=== PATIENT | female | born 1950 | race Caucasian/White ===

== ENCOUNTER 2020-10-02 14:45 | Inpatient (IN) | payer MEDICARE, OTHER ==
[~2020-10-02] VITALS: Ht 162.6 cm; Wt 72.6 kg
[2020-10-02 16:23] LABS: HEMOGLOBIN 16.6 gm/dl (12.3-15.3); RED BLOOD COUNT 5.32 M/UL (4.00-5.10); WHITE BLOOD COUNT 23.8 K/UL (4.5-11.0)
[2020-10-02] MEDS ORDERED: LISINOPRIL-HCT1 EAC1 PO (20:54)
[2020-10-02] MEDS ORDERED: THERAGRAN M TAB1 EA PO (20:55)
[2020-10-02] MEDS ORDERED: [UNRECOGNIZED DRUG - OTHER] PO (20:56)
[2020-10-03 04:19] LABS: BORDETELLA PARAPERTUSSIS Not Detected (Not Detectd); BORDETELLA PERTUSSIS Not Detected (Not Detectd); CHLAMYDIA PNEUMONIAE Not Detected (Not Detectd); CORONAVIRUS HKU1 Not Detected (Not Detectd); CORONAVIRUS NL63 Not Detected (Not Detectd); CORONAVIRUS OC43 Not Detected (Not Detectd); CORONOAVIRUS 229E Not Detected (Not Detectd); HUMAN METAPNEUMOVIRUS Not Detected (Not Detectd); HUMAN RHINOVIRUS/ENTEROVIRUS Not Detected (Not Detectd); INFLUENZA A Not Detected (Not Detectd); INFLUENZA B Not Detected (Not Detectd); MYCOPLASMA PNEUMONIAE Not Detected (Not Detectd); PARAINFLUENZA VIRUS 1 Not Detected (Not Detectd); PARAINFLUENZA VIRUS 2 Not Detected (Not Detectd); PARAINFLUENZA VIRUS 3 Not Detected (Not Detectd); PARAINFLUENZA VIRUS 4 Not Detected (Not Detectd); RESPIRATORY SYNCYTIAL VIRUS Not Detected (Not Detectd)
[2020-10-03 05:05] LABS: WHITE BLOOD COUNT 24.2 K/UL (4.5-11.0)
[2020-10-03 05:07] LABS: HEMOGLOBIN 14.5 gm/dl (12.3-15.3); RED BLOOD COUNT 4.61 M/UL (4.00-5.10)
[2020-10-03 05:10] LABS: SARS-CoV-2 NOT DETECTED (Not Detectd)
--- NOTE | 2020-10-03 17:45 | NUR ---
18G X 10CM MIDLINE INSERTED IN THE LEFT BRACHIAL VEIN. ASPIRATES AND FLUSHES WELL. NO COMPLICATIONS.
[2020-10-04 05:11] LABS: HEMOGLOBIN 12.4 gm/dl (12.3-15.3); RED BLOOD COUNT 4.01 M/UL (4.00-5.10); WHITE BLOOD COUNT 13.3 K/UL (4.5-11.0)
[2020-10-04 05:48] LABS: BUN/CREATININE RATIO 28 (0-10)
[2020-10-05 04:32] LABS: HEMOGLOBIN 12.3 gm/dl (12.3-15.3); RED BLOOD COUNT 4.01 M/UL (4.00-5.10); WHITE BLOOD COUNT 13.2 K/UL (4.5-11.0)
[2020-10-05 04:51] LABS: BUN/CREATININE RATIO 28 (0-10)
[2020-10-06 05:20] LABS: HEMOGLOBIN 12.8 gm/dl (12.3-15.3); RED BLOOD COUNT 4.1 M/UL (4.00-5.10); WHITE BLOOD COUNT 10.7 K/UL (4.5-11.0)
[2020-10-06 05:41] LABS: BUN/CREATININE RATIO 27 (0-10)
[2020-10-06] MEDS ORDERED: LEVOFLOXACIN500 MG PO ×2 (16:38→18:02)
[2020-10-06] MEDS ORDERED: HYDROCODON-ACE1 EAC4 PO ×2 (16:38→18:02)
[2020-10-07 04:50] LABS: HEMOGLOBIN 12.7 gm/dl (12.3-15.3); RED BLOOD COUNT 4.13 M/UL (4.00-5.10); WHITE BLOOD COUNT 10.5 K/UL (4.5-11.0)
[2020-10-07 05:17] LABS: BUN/CREATININE RATIO 32 (0-10)
[2020-10-07] MEDS ORDERED: LOPRESSOR 25 MG25 MG PO (16:31)
[2020-10-07] MEDS ORDERED: PROTONIX 40 MG40 M1 PO (16:31)
[2020-10-07] MEDS ORDERED: ATORVASTATIN CA20 MG PO (16:31)
[2020-10-07] MEDS ORDERED: ALPRAZOLAM0.5 MG PO (16:31)
[2020-10-07] MEDS ORDERED: ASPIRIN EC81 MG PO (16:31)
== END 2020-10-07 17:32 | disposition home or self-care (01) | DRG 242 ==
LOC: CCU 14:45 → PROG CARE 14:45 → CCU 19:14
PROVIDERS: Internal Medicine; ADMIT Family Medicine
PROC: 4A023N7 Measurement of Cardiac Sampling and Pressure, Left Heart, Percutaneous Approach (ICD-10-PCS; 2020-10-02)
PROC: B211YZZ Fluoroscopy of Multiple Coronary Arteries using Other Contrast (ICD-10-PCS; 2020-10-02)
PROC: 4A033BC Measurement of Arterial Pressure, Coronary, Percutaneous Approach (ICD-10-PCS; 2020-10-02)
PROC: 5A09357 Assistance with Respiratory Ventilation, Less than 24 Consecutive Hours, Continuous Positive Airway Pressure (ICD-10-PCS; 2020-10-02)
PROC: B24BZZZ Ultrasonography of Heart with Aorta (ICD-10-PCS; 2020-10-02)
PROC: 02HK3JZ Insertion of Pacemaker Lead into Right Ventricle, Percutaneous Approach (ICD-10-PCS; 2020-10-04)
PROC: 5A1223Z Performance of Cardiac Pacing, Continuous (ICD-10-PCS; 2020-10-04)
PROC: 05HM33Z Insertion of Infusion Device into Right Internal Jugular Vein, Percutaneous Approach (ICD-10-PCS; 2020-10-04)
PROC: 0JH606Z Insertion of Pacemaker, Dual Chamber into Chest Subcutaneous Tissue and Fascia, Open Approach (ICD-10-PCS; principal; 2020-10-06)
PROC: 02HK3JZ Insertion of Pacemaker Lead into Right Ventricle, Percutaneous Approach (ICD-10-PCS; 2020-10-06)
PROC: 02H63JZ Insertion of Pacemaker Lead into Right Atrium, Percutaneous Approach (ICD-10-PCS; 2020-10-06)
DX: I44.2 Atrioventricular block, complete (principal); J96.01 Acute respiratory failure with hypoxia; R57.0 Cardiogenic shock; J81.0 Acute pulmonary edema; I21.4 Non-ST elevation (NSTEMI) myocardial infarction; I50.31 Acute diastolic (congestive) heart failure; E87.2 Acidosis; I11.0 Hypertensive heart disease with heart failure; Z20.822 Contact with and (suspected) exposure to COVID-19; R00.1 Bradycardia, unspecified; I51.4 Myocarditis, unspecified; R77.8 Other specified abnormalities of plasma proteins; I25.10 Atherosclerotic heart disease of native coronary artery without angina pectoris; F41.9 Anxiety disorder, unspecified; I95.9 Hypotension, unspecified; D72.829 Elevated white blood cell count, unspecified; R74.01 Elevation of levels of liver transaminase levels; D47.3 Essential (hemorrhagic) thrombocythemia; N28.9 Disorder of kidney and ureter, unspecified; F40.240 Claustrophobia; D75.1 Secondary polycythemia; Z79.899 Other long term (current) drug therapy; Z88.8 Allergy status to other drugs, medicaments and biological substances; Z91.018 Allergy to other foods; Z90.49 Acquired absence of other specified parts of digestive tract; Z82.49 Family history of ischemic heart disease and other diseases of the circulatory system
CPT/HCPCS: ECHO; 33208; 36415; 36600; 71045; 80048; 80053; 80061; 80076; 80202; 81001; 82550; 82553; 82803; 83036; 83605; 83735; 83880; 84100; 84439; 84443; 84484; 85025; 85027; 85347; 85379; 85610; 85652; 85730; 86140; 87040; 87070; 87086; 87205; 87633; 93005; 93306; 93308; 94640; 94660; 94664; 94760; 99152; 99153; C1751; C1769; C1898; C2621; C9113; J0461; J1200; J1205; J1644; J1650; J1940; J1956; J2250; J2270; J2405; J2550; J3010; J3370; J3480; J7040; J7050; J7070; Q9965

== ENCOUNTER → 2020-10-20 | Outpatient (CLI) | payer MEDICARE, OTHER ==
[~2020-10-20] MED LIST: ALPRAZOLAM0.5 MG PO; ASPIRIN EC81 MG PO; ATORVASTATIN CA20 MG PO; HYDROCODON-ACE1 EAC4 PO; LEVOFLOXACIN500 MG PO; LISINOPRIL-HCT1 EAC1 PO; LOPRESSOR 25 MG25 MG PO; PROTONIX 40 MG40 M1 PO; THERAGRAN M TAB1 EA PO; [UNRECOGNIZED DRUG - OTHER] PO
== END ==
LOC: RAD 10:54
DX: I10 Essential (primary) hypertension (principal)
CPT/HCPCS: 71046